=== PATIENT | female | born 2005 | race Caucasian/White ===

== ENCOUNTER 2024-10-15 09:30 | Emergency (ER) | payer BC, MEDICAID, SELFPAY ==
[2024-10-15 09:35] VITALS: BP 105/68; PULSE 101; RESP 18; TEMP 37.2; O2SAT 97; BMI 18.8
[2024-10-15 11:52] LABS: Bilirubin Urine 1+ (Negative); Blood Urine Negative (Negative); Glucose Urine UA Negative (Normal); Ketones Urine Trace (Negative); Leukocyte Esterase Urine Trace (Negative); Nitrate Urine Negative (Negative); Protein Urine 1+ (Negative); Urine Appearance Cloudy (CLEAR); Urine Color Dark Yellow (Yellow); pH Urine 5.5 (5-7)
[2024-10-15 11:55] LABS: HCG Qualitative Urine. Negative (Negative)
[2024-10-15 11:58] LABS: Add Urine Microscopic? YES; Bacteria Urine 1+ /hpf; Hyaline Casts Urine 2.87 /lpf; RBC Urine 0-2 /hpf (0-2)
[2024-10-15 12:02] LABS: Specific Gravity, Urine 1.035 (1.005-1.030)
--- NOTE | 2024-10-15 12:11 | ED_ITS ---
HPI - General Adult General: Chief complaint: Upper Respiratory Infection Stated complaint: fever, cough Time Seen by Provider: 10/15/24 10:56 Source: patient Mode of arrival: ambulatory Limitations: no limitations History of Present Illness: This patient, and her son today. She has had bodyaches intermittent fevers some nausea with vomiting and some loose stools. She is also has some back pain and dysuria over the past couple of days. Others at home including her young son have been sick with viral symptoms. She is not normally in good health takes no daily medications. She is not a tobacco user but does vape. She is current on all usual immunizations. She does not feel much like eating does gag when she tries eat at times. She has had some loose stools as well. No blood in her stools no blood in her emesis. Associated symptoms: Reports decreased appetite, fevers/chills and vomiting; Deny chest pain, headache(s) or rash Related Data Previous Rx's ?Medication ?Instructions ?Recorded nitrofurantoin 100 mg PO BID 3 days #6 caps 10/15/24 monohydrate/macrocrystals 100 mg capsule (Macrobid) Allergies Allergy/AdvReac Type Severity Reaction Status Date / Time No Known Allergies Allergy Verified 10/15/24 09:37 Review of Systems Const: Reports: fever(s) and body aches Eyes: Denies: change in vision ENMT: Denies: throat pain, odynophagia, nasal discharge or nasal congestion Card: Denies: chest pain Resp: Reports: non-productive cough; Denies: wheezing or stridor GI: Reports: vomiting and diarrhea; Denies: abdominal pain, hematochezia or melena : Reports: urinary frequency and urinary urgency; Denies: dysuria, vaginal bleeding or vaginal discharge Musc: Reports: back pain; Denies: neck pain, extremity pain or extremity swelling Skin/Breast: Denies: rash Neuro: Denies: headache(s), numbness in extremities or weakness in extremities Physical Exam Narrative: EXAM NARRATIVE: She is comfortable in no acute distress able to answer questions and goal- directed fashion and moves readily about the emergency department. Const: COMMON NORMALS: no acute distress, average body habitus and patient oriented x3 GENERAL APPEARANCE: cooperative and comfortable HENMT: COMMON NORMALS: TM's normal bilaterally, Normal nasal mucous membranes and turbinates present, moist oral mucous membranes and oropharynx normal FACE & SINUS: normal facial exam NOSE: Normal nasal mucous membranes and turbinates present TYMPANIC MEMBRANE: TM's normal bilaterally Eye: COMMON NORMALS: Equal, round and reactive pupils present and conjunctivae normal CONJUNCTIVA: Yes conjunctivae normal PUPIL: Yes Equal, round and reactive pupils present Neck/C-Spine: COMMON NORMALS: full ROM and no lymphadenopathy Chest: COMMONS NORMALS: normal inspection of the chest Resp: COMMON NORMALS: normal respiratory effort, No use of accessory muscles and clear to auscultation bilaterally EFFORT & INSPECTION: Yes able to speak in complete sentences AUSCULTATION: clear to auscultation bilaterally Cardio: COMMON NORMALS: regular rate, regular rhythm, No murmurs present (Cardio) and Peripheral pulses 2+ throughout RATE: regular rate RHYTHM: regular rhythm PERIPHERAL PULSES: Peripheral pulses 2+ throughout GI: COMMON NORMALS: Normal to inspection, nondistended, normoactive bowel sounds present, Soft to palpation and non-tender PALPATION: Yes Soft to palpation Back/Pelvis: COMMON NORMALS: thoracic and lumbar spine normal to inspection, thoraco-lumbar ROM normal and straight leg raise negative bilaterally OTHER: Mild bilateral mid back paravertebral tenderness. No skin rashes ecchymosis etc. No midline tenderness. Extremity: COMMON NORMALS: normal to inspection, full ROM and capillary refill normal Neuro: COMMON NORMALS: patient oriented x3, moves all extremities and no focal motor deficits Skin: COMMON NORMALS: no rashes or lesions noted and turgor normal GENERAL SKIN EXAM: no rashes or lesions noted and turgor normal Course Vital Signs: Vital signs: Vital Signs Temperature 98.9 F 10/15/24 09:35 Pulse Rate 101 H 10/15/24 09:35 Respiratory Rate 18 10/15/24 09:35 Blood Pressure 105/68 10/15/24 09:35 Pulse Oximetry 97 10/15/24 09:35 Oxygen Delivery Me thod Room Air 10/15/24 09:35 [facility] - General Adult Medical Decision Making Patient presented to the Emergency Department with predominantly body aches fever and other symptoms suggestive of viral illness. Additional history was obtained which suggest she may have some mild dysuria. Her clinical examination is reassuring without any evidence of dehydration, acute abdomen, hypoxia or other concerning findings. Did have mid back tenderness and with her other symptoms a urinalysis was obtained. Did have significant epithelial cells but certainly in light of her current presentation it warrants a 3-day course of Macrobid [place]. We also discussed the usual course of viral illness and home care. Further more we also discussed that testing for influenza etc. in current immunologic picture with the high prevalence of disease would not change any any management decisions at this time as she has been sick for greater than 48 hours and any currently available treatments are have limited utility in benefit side effect equation. She voiced understanding. We also discussed return prec autions and home management. Lab Data I reviewed the patient's lab results. Laboratory Results HCG, Qual Negative (Negative) 10/15/24 11:42 Urine Color Dark yellow (Yellow) A 10/15/24 11:42 Urine Appearance Cloudy (CLEAR) A 10/15/24 11:42 Urine pH 5.5 (5-7) 10/15/24 11:42 Ur Specific [place] 1.035 (1.005-1.030) H 10/15/24 11:42 Urine Protein 1+ (Negative) A 10/15/24 11:42 Urine Glucose (UA) Negative (Normal) 10/15/24 11:42 Urine Ketones Trace (Negative) 10/15/24 11:42 Urine Blood Negative (Negative) 10/15/24 11:42 Urine Nitrate Negative (Negative) 10/15/24 11:42 Urine Bilirubin 1+ (Negative) H 10/15/24 11:42 Urine Urobilinogen 2.0 mg/dL (Negative) H 10/15/24 11:42 Ur Leukocyte Esterase Trace (Negative) A 10/15/24 11:42 Urine RBC 0-2 /hpf (0-2) 10/15/24 11:42 Urine WBC 6-10 /hpf (0-5) 10/15/24 11:42 Ur Squamous Epith Cells 11-20 /hpf (0-5) H 10/15/24 11:42 Amorphous Sediment Not Reportable 10/15/24 11:42 Urine Bacteria 1+ /hpf (NONE) H 10/15/24 11:42 Hyaline Casts 2.87 /lpf 10/15/24 11:42 No radiology studies performed this visit Discharge Plan Discharge Patient Disposition: Home Clinical Impression: Cystitis, Acute viral syndrome Condition: Stable Prescriptions: New nitrofurantoin monohyd/m-cryst [Macrobid] 100 mg capsule 100 mg PO BID 3 Days Qty: 6 0RF Rx Instructions: must administer with a meal/food Discharge Orders: Discharge ED (Routine); Ordered 10/15/24 Ordered By: Renny Dalton Referrals: Jin Evans PA [Primary Care Provider] - Discharge Diet: Advance as tolerated Discharge Activity: Increase activity as tolerated Patient Instructions: Opioid Safety, Pain Management Activity Restrictions/Additional Instructions: As we discussed you have some changes in your urine today which suggest a mild infection which may be contributing to some of your body aches and not feeling well in addition to your viral illness. We have prescribed an antibiotic to take for 3 days. Is important you drink small amounts of liquids such as sports drinks, half-strength apple juice etc. frequently to help keep hydrated. You may advance your diet as tolerated. If your symptoms do not continue to improve as 1 would expect over the next 3 to 4 days or worsen anytime you should return to the emergency department for reevaluation. Print Language: Setswana Coding Level of Care Code ED Weight Reduction Specialist for Jack Coto
[2024-10-15] MEDS: nitrofurantoin SR (BID) 100 mg Capsule PO (12:24)
[2024-10-15 12:25] VITALS: BP 110/68; PULSE 83; O2SAT 99
== END 2024-10-15 12:25 | disposition home or self-care (01) ==
PROVIDERS: Emergency Provider Emergency Medicine; PCP Emergency Medicine
DX: N30.90 Cystitis, unspecified without hematuria (principal); B34.9 Viral infection, unspecified
CPT/HCPCS: 81001; 81025; 99283